=== PATIENT | male | born 1980 | race Caucasian/White ===

== ENCOUNTER 2017-06-01 15:28 | Emergency (ER) | payer MEDICAID ==
[2017-06-01 19:00] VITALS: BP 113/60
== END 2017-06-01 19:00 | disposition home or self-care (01) ==
LOC: ED 15:28
DX: J06.9 Acute upper respiratory infection, unspecified (principal); M79.1 Myalgia
CPT/HCPCS: J7613; J7644

== ENCOUNTER 2018-10-09 17:59 | Emergency (ER) | payer MEDICAID ==
[~2018-10-09] VITALS: Ht 152.4 cm; Wt 71.2 kg
[2018-10-09 18:09] VITALS: Ht 152.4 cm; Wt 71.2 kg
[2018-10-09 19:54] VITALS: BP 120/88
== END 2018-10-09 19:54 | disposition home or self-care (01) ==
LOC: ED 17:59
DX: M54.5 Low back pain (principal)
CPT/HCPCS: J1885